=== PATIENT | male | born 1980 | race Caucasian/White ===

== ENCOUNTER 2024-08-03 15:31 | Emergency (ER) | payer OTHER ==
[~2024-08-03] VITALS: Ht 177.8 cm; Wt 90.7 kg
[2024-08-03 15:53] VITALS: BP 122/72; O2SAT 98
[2024-08-03] MEDS ORDERED: DIPHENHYDRAMINE HCL 50 MG/ML VIAL 1ML IV ONE (16:30)
[2024-08-03] MEDS ORDERED: METHYLPREDNISOLONE SOD SUCC 125 MG VIAL IV ONE (16:30)
[2024-08-03] MEDS ORDERED: FAMOTIDINE/PF 20 MG/2 ML VIAL IV ONE (16:45)
[2024-08-03] MEDS ORDERED: MEDROLPACK PO (18:13)
[2024-08-03] MEDS ORDERED: PEPCID AC20 MG PO (18:13)
[2024-08-03] MEDS ORDERED: BENADRYL ALLERG50 MG PO (18:13)
== END 2024-08-03 19:25 ==
LOC: ER 15:31
DX: T39.8X5A Adverse effect of other nonopioid analgesics and antipyretics, not elsewhere classified, initial encounter (principal); Y92.89 Other specified places as the place of occurrence of the external cause; Z88.6 Allergy status to analgesic agent